=== PATIENT | female | born 1950 | race Caucasian/White ===

== ENCOUNTER 2017-03-14 20:30 | Outpatient (CLI) | payer MEDICARE | END 2017-03-14 20:31 | disposition home or self-care (01) | LOC: SLEEPLAB 20:30 | PROVIDERS: ATTEND Psychiatry & Neurology Neurology | DX: G47.33 Obstructive sleep apnea (adult) (pediatric) (principal); G47.31 Primary central sleep apnea; G47.10 Hypersomnia, unspecified; E66.9 Obesity, unspecified; R06.83 Snoring | CPT/HCPCS: 95811 ==